=== PATIENT | female | born 1960 | race Caucasian/White ===

== ENCOUNTER → 2017-06-08 | Outpatient (CLI) | payer BC | END | disposition home or self-care (01) | LOC: CFH 12:38 | PROVIDERS: ATTEND Nurse Practitioner Gerontology | DX: Z12.31 Encounter for screening mammogram for malignant neoplasm of breast (principal); Z80.3 Family history of malignant neoplasm of breast | CPT/HCPCS: G0202 ==

== ENCOUNTER 2020-12-03 16:43 | Inpatient (IN) | payer BC, MEDICARE ==
[~2020-12-03] VITALS: Ht 160 cm; Wt 64.8 kg
--- NOTE | 2020-12-03 16:52 | NUR ---
REPORT TO PILY RIVERA. EKG COMPLETED ON ARRIVAL. ERP IN TO SEE PT.
--- NOTE | 2020-12-03 17:29 | NUR ---
PT SITTING UP RIGHT AT EDGE OF GURNEY. "IT HELPS WITH THE DISCOMFORT"
[2020-12-03 17:51] LABS: ALBUMIN 3.4 g/dL (3.4-5.0); ANION GAP 10 mmol/L (5-15); CALCIUM 9.5 mg/dL (8.5-10.1); CHLORIDE 100 mmol/L (98-107); INTERNATIONAL NORMALIZED RATIO 1.13 (0.93-1.1); PROTHROMBIN TIME 12.1 Seconds (9.6-11.5)
[2020-12-03 17:56] LABS: BASOPHILS % (AUTO) 1 % (0-1); EOSINOPHILS % (AUTO) 2 % (1-7); LYMPHOCYTES % (AUTO) 18 % (22-44); MEAN CORPUSCULAR HEMOGLOBIN 28.5 pg (27.0-34.8); MEAN CORPUSCULAR HGB CONC 31.7 g/dL (32.4-35.8); MEAN PLATELET VOLUME 7.3 fL (7.4-10.4); MONOCYTES % (AUTO) 5 % (2-9); NEUTROPHILS % (AUTO) 75 % (42-75); PLATELET COUNT 477 x10^3/uL (130-400); RED BLOOD COUNT 3.72 x10^6/uL (3.82-5.3); RED CELL DISTRIBUTION WIDTH 19.7 % (9.6-15.2)
[2020-12-03 17:57] LABS: ALANINE AMINOTRANSFERASE 60 U/L (12-78); ALKALINE PHOSPHATASE 323 U/L (45-117); BILIRUBIN,TOTAL 0.5 mg/dL (0.2-1.0); CREATININE 1.86 mg/dL (0.55-1.02); TROPONIN I < 0.015 ng/mL (0.000-0.045)
--- NOTE | 2020-12-03 18:01 | NUR ---
PT BE ADMITTED. PT EDUCATED ON PLAN OF CARE
[2020-12-03 18:06] LABS: MD NO
[2020-12-03] MEDS ORDERED: SODIUM CHLORIDE 0.9% 1,000ML IVBOLUS ONE (18:30)
[2020-12-03] MEDS ORDERED: SODIUM CHLORIDE 0.9% 1,000 ML IV ONE (18:30)
[2020-12-03 18:40] VITALS: BP 166/120
[2020-12-03 19:40] VITALS: BP 171/116
[2020-12-03] MEDS ORDERED: ALBU6.7H8 INH (19:51)
[2020-12-03] MEDS ORDERED: LOSA100T14 PO (19:51)
[2020-12-03] MEDS ORDERED: FURO20TA3 PO (19:51)
[2020-12-03] MEDS ORDERED: ALLO100T30 PO (19:51)
[2020-12-03] MEDS ORDERED: PREG75CA PO (19:51)
[2020-12-03 20:00] VITALS: BP 155/109
[2020-12-03] MEDS ORDERED: OXYcodone IR 5MG TABLET PO PRN (20:30)
[2020-12-03] MEDS ORDERED: morphine SULFATE 10 MG/ML, 1ML IVPush PRN (20:30)
[2020-12-03] MEDS ORDERED: ONDANSETRON ODT 4 MG PO PRN (20:30)
[2020-12-03] MEDS ORDERED: BISACODYL 10 MG SUPP PR PRN (20:30)
[2020-12-03] MEDS ORDERED: ONDANSETRON 2MG/ML, 2ML IVPush PRN (20:30)
[2020-12-03] MEDS ORDERED: PROMETHAZINE 25 MG/ML, 1ML IM PRN (20:30)
[2020-12-03] MEDS ORDERED: hydrALAzine 20 MG/ML, 1ML IVPush PRN (20:30)
[2020-12-03] MEDS: SODIUM CHLORIDE 0.9% 1,000 ML IV SCH (20:30)
[2020-12-03] MEDS ORDERED: DOCUSATE 100 MG CAPSULE PO PRN (20:30)
[2020-12-03] MEDS ORDERED: POLYETHYLENE GLYCOL 17 GM PACKET PO PRN (20:30)
[2020-12-03] MEDS: PREGABALIN 75 MG CAPSULE PO SCH (22:40)
[2020-12-03] MEDS: ALBUTEROL HFA 90 MCG/SPRAY INH PRN (23:20)
[2020-12-03] MEDS ORDERED: LORazepam 2 MG/ML, 1ML IVPush ONE (23:30)
[2020-12-04] VITALS (7 sets, daily range): BP systolic 89–151; BP diastolic 60–98
[2020-12-04] MEDS ORDERED: DIPHENHYDRAMINE 50 MG/ML, 1ML IVPush ONE (01:00)
[2020-12-04 04:53] LABS: BASOPHILS % (AUTO) 1 % (0-1); EOSINOPHILS % (AUTO) 2 % (1-7); LYMPHOCYTES % (AUTO) 19 % (22-44); MEAN CORPUSCULAR HEMOGLOBIN 29.1 pg (27.0-34.8); MEAN PLATELET VOLUME 7.1 fL (7.4-10.4); MONOCYTES % (AUTO) 7 % (2-9); NEUTROPHILS % (AUTO) 72 % (42-75); PLATELET COUNT 422 x10^3/uL (130-400); RED BLOOD COUNT 3.63 x10^6/uL (3.82-5.3); RED CELL DISTRIBUTION WIDTH 20.2 % (9.6-15.2)
[2020-12-04 04:54] LABS: MD NO
[2020-12-04 05:03] LABS: ALBUMIN 3.2 g/dL (3.4-5.0); ANION GAP 13 mmol/L (5-15); CALCIUM 9.4 mg/dL (8.5-10.1); CHLORIDE 99 mmol/L (98-107)
[2020-12-04 05:07] LABS: ALANINE AMINOTRANSFERASE 48 U/L (12-78); ALKALINE PHOSPHATASE 289 U/L (45-117); BILIRUBIN,TOTAL 0.5 mg/dL (0.2-1.0); CHOL/HDL RATIO 3.3; CHOLESTEROL, TOTAL 143 mg/dL (140-239); CREATININE 1.79 mg/dL (0.55-1.02); HDL CHOL % 30 % (28-40); HDL CHOLESTEROL (DIRECT) 43 mg/dL (40-60); LDL CHOLESTEROL,CALCULATED 78 mg/dL (54-169); LDL/HDL RATIO 1.8 (0.5-3.0); TOTAL PROTEIN 7.7 g/dL (6.4-8.2); TRIGLYCERIDES 112 mg/dL (50-200); VLDL CHOLESTEROL 22 mg/dL (0-25)
[2020-12-04] MEDS: SODIUM CHLORIDE 0.9% 1,000 ML IV SCH (05:34)
[2020-12-04] MEDS ORDERED: MAGNESIUM SULFATE PMX 4GM/100M 100 ML IVPB ONE (07:30)
[2020-12-04] MEDS: ALLOPURINOL 100 MG TABLET PO SCH (07:51)
[2020-12-04] MEDS: LOSARTAN 100 MG TAB PO SCH (07:51)
[2020-12-04] MEDS: ALBUTEROL HFA 90 MCG/SPRAY INH PRN ×2 (07:51→22:32)
[2020-12-04] MEDS: PREGABALIN 75 MG CAPSULE PO SCH ×4 (07:51→21:54)
[2020-12-04 08:52] LABS: FREE T4 (FREE THYROXINE) 1.4 ng/dL (0.76-1.46)
[2020-12-04] MEDS ORDERED: MIDAZOLAM 1 MG/ML, 2ML ONE (13:03)
[2020-12-04] MEDS ORDERED: FENTANYL PF 100 MCG/2ML ONE (13:04)
[2020-12-04] MEDS ORDERED: LIDOCAINE 2%, 20ML ONE (13:04)
[2020-12-05 01:54] VITALS: BP 108/72
[2020-12-05] MEDS: LEVOTHYROXINE 75 MCG TABLET PO SCH (05:47)
[2020-12-05 07:35] LABS: BASOPHILS % (AUTO) 1 % (0-1); EOSINOPHILS % (AUTO) 3 % (1-7); LYMPHOCYTES % (AUTO) 16 % (22-44); MEAN CORPUSCULAR HEMOGLOBIN 28.9 pg (27.0-34.8); MEAN CORPUSCULAR HGB CONC 31.6 g/dL (32.4-35.8); MEAN PLATELET VOLUME 7.2 fL (7.4-10.4); MONOCYTES % (AUTO) 9 % (2-9); NEUTROPHILS % (AUTO) 72 % (42-75); PLATELET COUNT 386 x10^3/uL (130-400); RED BLOOD COUNT 3.45 x10^6/uL (3.82-5.3); RED CELL DISTRIBUTION WIDTH 20.3 % (9.6-15.2)
[2020-12-05 07:36] LABS: MD NO
[2020-12-05 07:41] LABS: ALANINE AMINOTRANSFERASE 32 U/L (12-78); ALBUMIN 2.3 g/dL (3.4-5.0); ANION GAP 7 mmol/L (5-15); CALCIUM 8.2 mg/dL (8.5-10.1); CHLORIDE 108 mmol/L (98-107); CREATININE 2.44 mg/dL (0.55-1.02)
[2020-12-05 07:43] LABS: ALKALINE PHOSPHATASE 206 U/L (45-117); BILIRUBIN,TOTAL 0.3 mg/dL (0.2-1.0); TOTAL PROTEIN 5.6 g/dL (6.4-8.2)
[2020-12-05 07:50] VITALS: BP 132/85
[2020-12-05] MEDS: LOSARTAN 100 MG TAB PO SCH (08:31)
[2020-12-05] MEDS: PREGABALIN 75 MG CAPSULE PO SCH ×3 (08:31→20:48)
[2020-12-05] MEDS: ALLOPURINOL 100 MG TABLET PO SCH (08:32)
[2020-12-05 13:46] VITALS: BP 100/66
[2020-12-05 13:48] VITALS: BP 99/64
[2020-12-05 15:07] LABS: OCCULT BLOOD NEGATIVE (NEGATIVE)
[2020-12-05 18:52] VITALS: BP 124/84
[2020-12-05] MEDS ORDERED: TRAZODONE 50MG TABLET PO ONE (22:30)
[2020-12-06 01:57] VITALS: BP 150/90
[2020-12-06 05:06] LABS: BASOPHILS % (AUTO) 1 % (0-1); EOSINOPHILS % (AUTO) 4 % (1-7); LYMPHOCYTES % (AUTO) 26 % (22-44); MEAN CORPUSCULAR HGB CONC 32.2 g/dL (32.4-35.8); MEAN PLATELET VOLUME 7.3 fL (7.4-10.4); MONOCYTES % (AUTO) 10 % (2-9); NEUTROPHILS % (AUTO) 61 % (42-75); PLATELET COUNT 363 x10^3/uL (130-400); RED BLOOD COUNT 3.31 x10^6/uL (3.82-5.3); RED CELL DISTRIBUTION WIDTH 20.5 % (9.6-15.2)
[2020-12-06 05:08] LABS: MD NO
[2020-12-06] MEDS: LEVOTHYROXINE 75 MCG TABLET PO SCH (05:11)
[2020-12-06 05:12] LABS: ALBUMIN 2.3 g/dL (3.4-5.0); ANION GAP 7 mmol/L (5-15); CALCIUM 8.4 mg/dL (8.5-10.1); CHLORIDE 107 mmol/L (98-107)
[2020-12-06 05:17] LABS: ALANINE AMINOTRANSFERASE 26 U/L (12-78); ALKALINE PHOSPHATASE 176 U/L (45-117); BILIRUBIN,TOTAL 0.3 mg/dL (0.2-1.0); CREATININE 2.25 mg/dL (0.55-1.02); TOTAL PROTEIN 5.7 g/dL (6.4-8.2)
[2020-12-06 06:50] VITALS: BP 121/80
[2020-12-06] MEDS: ALLOPURINOL 100 MG TABLET PO SCH (08:42)
[2020-12-06] MEDS: PREGABALIN 75 MG CAPSULE PO SCH ×3 (08:42→19:59)
[2020-12-06] MEDS: LOSARTAN 100 MG TAB PO SCH (08:42)
[2020-12-06 12:54] VITALS: BP 125/83
[2020-12-06 21:19] VITALS: BP 168/95
[2020-12-06] MEDS: TRAZODONE 100MG TABLET PO PRN (22:36)
[2020-12-07 00:51] VITALS: BP 155/98
[2020-12-07 04:59] LABS: BASOPHILS % (AUTO) 1 % (0-1); EOSINOPHILS % (AUTO) 3 % (1-7); LYMPHOCYTES % (AUTO) 28 % (22-44); MD NO; MEAN CORPUSCULAR HEMOGLOBIN 29.1 pg (27.0-34.8); MEAN CORPUSCULAR HGB CONC 32.4 g/dL (32.4-35.8); MEAN PLATELET VOLUME 6.9 fL (7.4-10.4); MONOCYTES % (AUTO) 7 % (2-9); NEUTROPHILS % (AUTO) 61 % (42-75); PLATELET COUNT 343 x10^3/uL (130-400); RED BLOOD COUNT 3.08 x10^6/uL (3.82-5.3); RED CELL DISTRIBUTION WIDTH 20.6 % (9.6-15.2)
[2020-12-07] MEDS: LEVOTHYROXINE 75 MCG TABLET PO SCH (05:02)
[2020-12-07 05:10] LABS: ALBUMIN 2.2 g/dL (3.4-5.0); ANION GAP 7 mmol/L (5-15); CALCIUM 8.7 mg/dL (8.5-10.1); CHLORIDE 109 mmol/L (98-107)
[2020-12-07 05:14] LABS: ALANINE AMINOTRANSFERASE 25 U/L (12-78); ALKALINE PHOSPHATASE 155 U/L (45-117); BILIRUBIN,TOTAL 0.3 mg/dL (0.2-1.0); CREATININE 1.74 mg/dL (0.55-1.02); TOTAL PROTEIN 5.7 g/dL (6.4-8.2)
[2020-12-07 08:37] VITALS: BP 131/86
[2020-12-07] MEDS: LOSARTAN 100 MG TAB PO SCH (08:45)
[2020-12-07] MEDS: ALLOPURINOL 100 MG TABLET PO SCH (08:45)
[2020-12-07] MEDS: PREGABALIN 75 MG CAPSULE PO SCH ×3 (08:46→21:50)
[2020-12-07] MEDS ORDERED: MIDAZOLAM 1 MG/ML, 5ML ONE ×2 (12:00)
[2020-12-07] MEDS ORDERED: FENTANYL PF 100 MCG/2ML ONE (12:00)
[2020-12-07] MEDS ORDERED: LIDOCAINE 1%, 20ML ONE (15:53)
[2020-12-07 18:45] VITALS: BP 168/98
[2020-12-07] MEDS ORDERED: LIDOCAINE 2%, 20ML ONE (20:56)
[2020-12-07] MEDS ORDERED: LIDOCAINE 4% TOPICAL SOLUTION 50 ML ONE (20:56)
[2020-12-07] MEDS: TRAZODONE 100MG TABLET PO PRN (22:12)
[2020-12-07] MEDS: ALBUTEROL HFA 90 MCG/SPRAY INH PRN (22:13)
[2020-12-08 01:09] VITALS: BP 144/85
[2020-12-08 05:28] LABS: BASOPHILS % (AUTO) 1 % (0-1); EOSINOPHILS % (AUTO) 2 % (1-7); LYMPHOCYTES % (AUTO) 18 % (22-44); MEAN CORPUSCULAR HEMOGLOBIN 28.8 pg (27.0-34.8); MEAN CORPUSCULAR HGB CONC 32.3 g/dL (32.4-35.8); MEAN PLATELET VOLUME 6.8 fL (7.4-10.4); MONOCYTES % (AUTO) 5 % (2-9); NEUTROPHILS % (AUTO) 75 % (42-75); PLATELET COUNT 350 x10^3/uL (130-400); RED BLOOD COUNT 2.93 x10^6/uL (3.82-5.3); RED CELL DISTRIBUTION WIDTH 19.8 % (9.6-15.2)
[2020-12-08 05:30] LABS: MD NO
[2020-12-08 05:37] LABS: ALANINE AMINOTRANSFERASE 23 U/L (12-78); ALBUMIN 2.1 g/dL (3.4-5.0); ANION GAP 7 mmol/L (5-15); CALCIUM 8.2 mg/dL (8.5-10.1); CHLORIDE 110 mmol/L (98-107); CREATININE 1.78 mg/dL (0.55-1.02)
[2020-12-08 05:39] LABS: ALKALINE PHOSPHATASE 158 U/L (45-117); BILIRUBIN,TOTAL 0.3 mg/dL (0.2-1.0); TOTAL PROTEIN 5.5 g/dL (6.4-8.2)
[2020-12-08] MEDS: LEVOTHYROXINE 75 MCG TABLET PO SCH (06:30)
[2020-12-08] MEDS: ALBUTEROL HFA 90 MCG/SPRAY INH PRN ×2 (07:00→21:14)
[2020-12-08 07:27] VITALS: BP 169/71
[2020-12-08] MEDS: LOSARTAN 100 MG TAB PO SCH (09:02)
[2020-12-08] MEDS: PREGABALIN 75 MG CAPSULE PO SCH ×3 (09:02→21:14)
[2020-12-08] MEDS: ALLOPURINOL 100 MG TABLET PO SCH (09:02)
[2020-12-08 09:04] VITALS: BP 145/82
[2020-12-08 11:22] LABS: TROPONIN I 0.326 ng/mL (0.000-0.045)
[2020-12-08] MEDS: CARVEDILOL 6.25 MG TABLET PO SCH ×2 (12:04→17:10)
[2020-12-08 12:21] VITALS: BP 118/76
[2020-12-08 13:05] LABS: TROPONIN I 0.214 ng/mL (0.000-0.045)
[2020-12-08 14:00] LABS: ANA SCREEN NEGATIVE (Negative)
[2020-12-08 18:47] VITALS: BP 148/95
[2020-12-08] MEDS: TRAZODONE 100MG TABLET PO PRN (22:05)
[2020-12-09 01:21] VITALS: BP 150/80
[2020-12-09] MEDS: LEVOTHYROXINE 75 MCG TABLET PO SCH (05:51)
[2020-12-09] MEDS: CARVEDILOL 6.25 MG TABLET PO SCH ×2 (05:51→17:28)
[2020-12-09 08:29] VITALS: BP 125/81
[2020-12-09 08:36] LABS: ALANINE AMINOTRANSFERASE 31 U/L (12-78); ALBUMIN 2.2 g/dL (3.4-5.0); ANION GAP 7 mmol/L (5-15); BASOPHILS % (AUTO) 1 % (0-1); CALCIUM 8.3 mg/dL (8.5-10.1); CHLORIDE 108 mmol/L (98-107); CREATININE 1.61 mg/dL (0.55-1.02); EOSINOPHILS % (AUTO) 6 % (1-7); LYMPHOCYTES % (AUTO) 29 % (22-44); MEAN CORPUSCULAR HEMOGLOBIN 28.9 pg (27.0-34.8); MEAN CORPUSCULAR HGB CONC 32.1 g/dL (32.4-35.8); MEAN PLATELET VOLUME 7.1 fL (7.4-10.4); MONOCYTES % (AUTO) 9 % (2-9); NEUTROPHILS % (AUTO) 55 % (42-75); PLATELET COUNT 385 x10^3/uL (130-400); RED BLOOD COUNT 3.18 x10^6/uL (3.82-5.3); RED CELL DISTRIBUTION WIDTH 19.7 % (9.6-15.2)
[2020-12-09 08:37] LABS: MD NO
[2020-12-09 08:39] LABS: ALKALINE PHOSPHATASE 162 U/L (45-117); BILIRUBIN,TOTAL 0.2 mg/dL (0.2-1.0); TOTAL PROTEIN 5.8 g/dL (6.4-8.2)
[2020-12-09] MEDS: ALLOPURINOL 100 MG TABLET PO SCH (10:03)
[2020-12-09] MEDS: PREGABALIN 75 MG CAPSULE PO SCH ×3 (10:03→21:14)
[2020-12-09] MEDS: LOSARTAN 100 MG TAB PO SCH (10:04)
[2020-12-09 14:25] VITALS: BP 121/73
[2020-12-09 17:27] VITALS: BP 148/91
[2020-12-09 19:42] VITALS: BP 129/86
[2020-12-09] MEDS: TRAZODONE 100MG TABLET PO PRN (21:14)
[2020-12-09] MEDS: ALBUTEROL HFA 90 MCG/SPRAY INH PRN (22:02)
[2020-12-10 02:42] VITALS: BP 140/84
[2020-12-10 05:26] LABS: ALBUMIN 2.1 g/dL (3.4-5.0); ANION GAP 7 mmol/L (5-15); CHLORIDE 107 mmol/L (98-107)
[2020-12-10 05:30] LABS: ALANINE AMINOTRANSFERASE 30 U/L (12-78); ALKALINE PHOSPHATASE 154 U/L (45-117); BILIRUBIN,TOTAL 0.2 mg/dL (0.2-1.0); TOTAL PROTEIN 5.5 g/dL (6.4-8.2)
[2020-12-10 06:34] VITALS: BP 116/76
[2020-12-10] MEDS: LEVOTHYROXINE 75 MCG TABLET PO SCH (06:38)
[2020-12-10] MEDS: CARVEDILOL 6.25 MG TABLET PO SCH (06:38)
[2020-12-10 07:05] VITALS: BP 134/83
[2020-12-10] MEDS: ALLOPURINOL 100 MG TABLET PO SCH (09:30)
[2020-12-10] MEDS: LOSARTAN 100 MG TAB PO SCH (09:30)
[2020-12-10] MEDS: PREGABALIN 75 MG CAPSULE PO SCH ×3 (09:30→22:19)
[2020-12-10] MEDS: FUROSEMIDE 20 MG TABLET PO SCH (12:29)
[2020-12-10 14:50] VITALS: BP 137/82
[2020-12-10] MEDS: CARVEDILOL 12.5 MG TABLET PO SCH (17:16)
[2020-12-10 22:00] VITALS: BP 147/87
[2020-12-10] MEDS: ALBUTEROL HFA 90 MCG/SPRAY INH PRN (22:19)
[2020-12-10] MEDS: TRAZODONE 100MG TABLET PO PRN (22:19)
[2020-12-11 00:15] VITALS: BP 137/92
[2020-12-11] MEDS: LEVOTHYROXINE 75 MCG TABLET PO SCH (05:42)
[2020-12-11] MEDS: CARVEDILOL 12.5 MG TABLET PO SCH ×2 (05:43→16:56)
[2020-12-11 05:49] VITALS: BP 136/84
[2020-12-11] MEDS: PREGABALIN 75 MG CAPSULE PO SCH ×2 (08:17→16:56)
[2020-12-11] MEDS: LOSARTAN 100 MG TAB PO SCH (08:17)
[2020-12-11] MEDS: ALLOPURINOL 100 MG TABLET PO SCH (08:18)
[2020-12-11] MEDS: ALBUTEROL HFA 90 MCG/SPRAY INH PRN (08:18)
[2020-12-11] MEDS ORDERED: REGADENOSON 0.4 MG/5 ML SYRINGE ONE (08:37)
[2020-12-11 08:46] VITALS: BP 131/81
[2020-12-11] MEDS: FUROSEMIDE 20 MG TABLET PO SCH (11:47)
[2020-12-11 16:40] VITALS: BP 114/83
[2020-12-11] MEDS ORDERED: LEVO75TA PO (17:43)
[2020-12-11] MEDS ORDERED: CARV12.52 PO (17:43)
== END 2020-12-11 19:36 | disposition home or self-care (01) | DRG 314 ==
LOC: ED 17:10 → EDIP 18:24 → 5SO 18:54
PROVIDERS: ADMIT Internal Medicine; ATTEND Hospitalist
PROC: 0W9D3ZZ Drainage of Pericardial Cavity, Percutaneous Approach (ICD-10-PCS; principal; 2020-12-04)
PROC: 0BJ08ZZ Inspection of Tracheobronchial Tree, Via Natural or Artificial Opening Endoscopic (ICD-10-PCS; 2020-12-07)
PROC: 0W9B30Z Drainage of Left Pleural Cavity with Drainage Device, Percutaneous Approach (ICD-10-PCS; 2020-12-07)
DX: I30.8 Other forms of acute pericarditis (principal); N17.0 Acute kidney failure with tubular necrosis; E87.1 Hypo-osmolality and hyponatremia; E87.2 Acidosis; I13.0 Hypertensive heart and chronic kidney disease with heart failure and stage 1 through stage 4 chronic kidney disease, or unspecified chronic kidney disease; I42.9 Cardiomyopathy, unspecified; I50.40 Unspecified combined systolic (congestive) and diastolic (congestive) heart failure; J98.19 Other pulmonary collapse; J90 Pleural effusion, not elsewhere classified; I31.4 Cardiac tamponade; E83.42 Hypomagnesemia; E03.9 Hypothyroidism, unspecified; F10.21 Alcohol dependence, in remission; J45.20 Mild intermittent asthma, uncomplicated; K76.0 Fatty (change of) liver, not elsewhere classified; N18.9 Chronic kidney disease, unspecified; R09.02 Hypoxemia; Z20.822 Contact with and (suspected) exposure to COVID-19; Z90.711 Acquired absence of uterus with remaining cervical stump; Z91.19 Patient's noncompliance with other medical treatment and regimen; K21.9 Gastro-esophageal reflux disease without esophagitis; M10.9 Gout, unspecified; R94.6 Abnormal results of thyroid function studies; Z88.6 Allergy status to analgesic agent
CPT/HCPCS: 32555; 33016; 36415; 74018; 82945; 89051; 93017; 99291; J3490; 31622; 71045; 71250; 76700; 76930; 78452; 80053; 80061; 82272; 83036; 83615; 83735; 83880; 84100; 84157; 84439; 84443; 84481; 84484; 85025; 85610; 85730; 86038; 86480; 87015; 87070; 87116; 87205; 87206; 88112; 88305; 88341; 88342; 93005; 93306; 93308; 93321; 93325; 99152; 99153; 99156; 99157; C1729; G0378; J2250; J2785; J3010; A9502; J0360; J1200; J2060; J3475; J7030; U0003

== ENCOUNTER 2020-12-28 14:41 | Inpatient (IN) | payer BC, MEDICARE ==
[~2020-12-28] VITALS: Ht 160 cm; Wt 54.5 kg
[~2020-12-28 14:41] MED LIST: ALBU6.7H8 INH; ALLO100T30 PO; CARV12.52 PO; FURO20TA3 PO; LEVO75TA PO; LOSA100T14 PO; PREG75CA PO
[2020-12-28 19:04] VITALS: BP 163/84
[2020-12-28] MEDS ORDERED: sodium bicarbonate PO (22:51)
[2020-12-28] MEDS ORDERED: LIDODERM 5% PATCH TD PRN (23:00)
[2020-12-28] MEDS ORDERED: MELATONIN 5 MG TABLET PO PRN (23:00)
[2020-12-28] MEDS ORDERED: hydrALAzine 20 MG/ML, 1ML IVPush PRN (23:00)
[2020-12-29] MEDS ORDERED: OMEG-133 PO (00:09)
[2020-12-29] MEDS ORDERED: CALC-112 PO (00:09)
[2020-12-29 00:57] VITALS: BP 166/88
[2020-12-29 05:56] LABS: BASOPHILS % (AUTO) 1 % (0-1); EOSINOPHILS % (AUTO) 4 % (1-7); LYMPHOCYTES % (AUTO) 25 % (22-44); MEAN CORPUSCULAR HEMOGLOBIN 27.8 pg (27.0-34.8); MEAN CORPUSCULAR HGB CONC 32.2 g/dL (32.4-35.8); MEAN PLATELET VOLUME 7.6 fL (7.4-10.4); MONOCYTES % (AUTO) 12 % (2-9); NEUTROPHILS % (AUTO) 59 % (42-75); PLATELET COUNT 365 x10^3/uL (130-400); RED BLOOD COUNT 2.98 x10^6/uL (3.82-5.3); RED CELL DISTRIBUTION WIDTH 18.3 % (9.6-15.2)
[2020-12-29 05:57] LABS: MD NO
[2020-12-29 06:14] LABS: ANION GAP 8 mmol/L (5-15); CALCIUM 9.4 mg/dL (8.5-10.1); CHLORIDE 107 mmol/L (98-107)
[2020-12-29 06:16] LABS: CREATININE 1.71 mg/dL (0.55-1.02)
[2020-12-29 10:26] VITALS: BP 174/93
[2020-12-29] MEDS ORDERED: PANT40TA6 PO (10:32)
[2020-12-29] MEDS ORDERED: AMLO-210 PO (10:32)
[2020-12-29] MEDS ORDERED: HYDR12.575 PO (10:32)
[2020-12-29] MEDS ORDERED: LOSA25TA12 PO (11:01)
[2020-12-29] MEDS ORDERED: FURO40TA6 PO (11:01)
[2020-12-29 13:02] VITALS: BP 189/90
[2020-12-29] MEDS: PREGABALIN 75 MG CAPSULE PO SCH ×2 (17:13→22:08)
[2020-12-29] MEDS: CARVEDILOL 12.5 MG TABLET PO SCH (17:13)
[2020-12-29 19:09] VITALS: BP 126/79
[2020-12-30 00:55] VITALS: BP 145/82
[2020-12-30 05:13] LABS: BASOPHILS % (AUTO) 1 % (0-1); EOSINOPHILS % (AUTO) 4 % (1-7); LYMPHOCYTES % (AUTO) 35 % (22-44); MEAN CORPUSCULAR HEMOGLOBIN 28.2 pg (27.0-34.8); MEAN PLATELET VOLUME 7.4 fL (7.4-10.4); MONOCYTES % (AUTO) 12 % (2-9); NEUTROPHILS % (AUTO) 48 % (42-75); PLATELET COUNT 345 x10^3/uL (130-400); RED BLOOD COUNT 2.89 x10^6/uL (3.82-5.3); RED CELL DISTRIBUTION WIDTH 18.5 % (9.6-15.2)
[2020-12-30 05:15] LABS: MD NO
[2020-12-30 05:25] LABS: ALBUMIN 2.3 g/dL (3.4-5.0); ANION GAP 8 mmol/L (5-15); CALCIUM 9.3 mg/dL (8.5-10.1); CHLORIDE 110 mmol/L (98-107)
[2020-12-30 05:26] LABS: CREATININE 1.45 mg/dL (0.55-1.02)
[2020-12-30] MEDS: LEVOTHYROXINE 75 MCG TABLET PO SCH (06:36)
[2020-12-30] MEDS: CARVEDILOL 12.5 MG TABLET PO SCH ×2 (06:36→17:37)
[2020-12-30] MEDS ORDERED: MAGNESIUM SULFATE PMX 2GM/50ML 50 ML IV ONE (08:00)
[2020-12-30 08:10] VITALS: BP 149/82
[2020-12-30] MEDS: FUROSEMIDE 40 MG TABLET PO SCH (08:16)
[2020-12-30] MEDS: ALLOPURINOL 300 MG TABLET PO SCH (08:16)
[2020-12-30] MEDS: LOSARTAN 100 MG TAB PO SCH (08:16)
[2020-12-30] MEDS: PREGABALIN 75 MG CAPSULE PO SCH ×3 (08:17→20:54)
[2020-12-30 14:19] VITALS: BP 139/81
[2020-12-30] MEDS ORDERED: OMNIPAQUE 350 MG/ML, 100ML BOTTLE ONE (17:06)
[2020-12-30 19:38] VITALS: BP 169/89
[2020-12-31 01:06] VITALS: BP 148/90
[2020-12-31 05:44] LABS: CHLORIDE 103 mmol/L (98-107)
[2020-12-31 05:45] LABS: BASOPHILS % (AUTO) 1 % (0-1); EOSINOPHILS % (AUTO) 4 % (1-7); LYMPHOCYTES % (AUTO) 39 % (22-44); MEAN CORPUSCULAR HEMOGLOBIN 27.7 pg (27.0-34.8); MEAN CORPUSCULAR HGB CONC 32.2 g/dL (32.4-35.8); MEAN PLATELET VOLUME 7.6 fL (7.4-10.4); MONOCYTES % (AUTO) 10 % (2-9); NEUTROPHILS % (AUTO) 46 % (42-75); PLATELET COUNT 420 x10^3/uL (130-400); RED BLOOD COUNT 3.21 x10^6/uL (3.82-5.3); RED CELL DISTRIBUTION WIDTH 18.5 % (9.6-15.2)
[2020-12-31 05:48] LABS: MD NO
[2020-12-31 05:54] LABS: ALBUMIN 2.6 g/dL (3.4-5.0); ANION GAP 8 mmol/L (5-15); CALCIUM 9.4 mg/dL (8.5-10.1); CREATININE 1.61 mg/dL (0.55-1.02)
[2020-12-31] MEDS: LEVOTHYROXINE 75 MCG TABLET PO SCH (06:05)
[2020-12-31] MEDS: CARVEDILOL 12.5 MG TABLET PO SCH (06:05)
[2020-12-31 06:43] VITALS: BP_SYST 156; BP_SYST 167; BP_DIAS 84; BP_DIAS 95
[2020-12-31] MEDS: FUROSEMIDE 40 MG TABLET PO SCH (09:58)
[2020-12-31] MEDS: LOSARTAN 100 MG TAB PO SCH (09:59)
[2020-12-31] MEDS: ALLOPURINOL 300 MG TABLET PO SCH (09:59)
[2020-12-31] MEDS: PREGABALIN 75 MG CAPSULE PO SCH (09:59)
[2020-12-31 11:43] LABS: FREE T4 (FREE THYROXINE) 1.3 ng/dL (0.76-1.46)
[2020-12-31] MEDS ORDERED: LIOT25TA12 PO (13:22)
[2020-12-31 14:36] VITALS: BP 132/79
[2020-12-31] MEDS ORDERED: COLC0.6T37 PO (17:17)
== END 2020-12-31 15:35 | disposition home or self-care (01) | DRG 187 ==
LOC: 5SO 16:35 → DCLOUNGE 12-31 15:25
PROVIDERS: ADMIT Internal Medicine; ATTEND Family Medicine
DX: J90 Pleural effusion, not elsewhere classified (principal); N17.9 Acute kidney failure, unspecified; I13.0 Hypertensive heart and chronic kidney disease with heart failure and stage 1 through stage 4 chronic kidney disease, or unspecified chronic kidney disease; I31.3 Pericardial effusion (noninflammatory); E87.1 Hypo-osmolality and hyponatremia; I50.22 Chronic systolic (congestive) heart failure; J98.19 Other pulmonary collapse; D63.8 Anemia in other chronic diseases classified elsewhere; E03.9 Hypothyroidism, unspecified; J45.909 Unspecified asthma, uncomplicated; N18.30 Chronic kidney disease, stage 3 unspecified; Z90.710 Acquired absence of both cervix and uterus; Z80.0 Family history of malignant neoplasm of digestive organs; Z82.49 Family history of ischemic heart disease and other diseases of the circulatory system; Z79.899 Other long term (current) drug therapy; Z79.891 Long term (current) use of opiate analgesic; Z79.01 Long term (current) use of anticoagulants; Z88.8 Allergy status to other drugs, medicaments and biological substances; Z88.5 Allergy status to narcotic agent
CPT/HCPCS: 36415; 71045; 71260; 74177; 80048; 80069; 83735; 84439; 84443; 84481; 85025; 86200; 93308; G0378; Q9967; J0360; J3475